=== PATIENT | female | born 1995 | race Caucasian/White ===

== ENCOUNTER 2021-10-03 20:10 | Emergency (ER) | payer BC, MEDICAID ==
[2021-10-03] MEDS: Ketorolac 30 MG/ML SDV IM ONE (21:37)
[2021-10-03] MEDS: Cefdinir 300 MG Cap PO ONE (21:42)
[2021-10-03 21:52] LABS: CORONAVIRUS COVID-19 NAA NEGATIVE (NEGATIVE)
== END 2021-10-03 22:28 | disposition home or self-care (01) ==
LOC: JD.ED 20:10
DX: N10 Acute pyelonephritis (principal); M25.512 Pain in left shoulder; Z20.822 Contact with and (suspected) exposure to COVID-19
CPT/HCPCS: 0240U; 73030; 81001; 87086; 87088; 87186; 96372; 99284; A9270; J1885

== ENCOUNTER 2024-07-14 23:01 | Emergency (ER) | payer MEDICAID | END 2024-07-15 00:52 | disposition home or self-care (01) | LOC: JD.ED 23:01 | DX: S00.31XA Abrasion of nose, initial encounter (principal); M79.632 Pain in left forearm; Y04.8XXA Assault by other bodily force, initial encounter | CPT/HCPCS: 73090-26-LT; 73090-LT; 99284 ==

== ENCOUNTER 2025-02-28 08:22 | Observation (INO) | payer MEDICAID ==
[2025-02-28 09:01] LABS: BASOPHILS ABSOLUTE AUTO 0.0 K/mm3 (0.0-0.2); BASOPHILS PERCENT AUTO 0.3 % (0.0-1.0); EOSINOPHILS ABSOLUTE AUTO 0.1 K/mm3 (0.0-0.4); EOSINOPHILS PERCENT AUTO 1.4 % (0.0-6.0); IMMATURE GRAN ABSOLUTE AUTO 0.03 K/mm3 (0.00-0.05); IMMATURE GRAN PERCENT AUTO 0.3 % (0.0-0.4); LYMPHOCYTES ABSOLUTE AUTO 3.5 K/mm3 (1.0-4.8); LYMPHOCYTES PERCENT AUTO 35.9 % (24.0-44.0); MEAN PLATELET VOLUME 9.0 fl (9.4-12.3); MONOCYTES ABSOLUTE AUTO 0.4 K/mm3 (0.0-0.8); MONOCYTES PERCENT AUTO 3.8 % (0.0-8.0); NEUTROPHILS ABSOLUTE AUTO 5.7 K/mm3 (1.8-7.7); NEUTROPHILS PERCENT AUTO 58.3 % (41.0-71.0); NRBC ABSOLUTE 0.00 (0.00-0.02); NRBC PERCENT 0.0 % (0.0-0.2); PLATELET COUNT,PLT 293 K/mm3 (150-400); RED BLOOD CELL COUNT 3.87 M/mm3 (4.10-5.30); WHITE BLOOD CELL COUNT,WBC 9.81 K/mm3 (3.9-11.3)
[2025-02-28] MEDS: Ondansetron 4 MG/2 ML SDV IVPUSH ONE (09:02)
[2025-02-28 09:11] LABS: A/G RATIO 0.7 (1-2); ALANINE AMINOTRANSFERASE,ALT 47.0 U/L (14-59); ASPARTATE AMNIOTRANSFERASE,AST 34.0 U/L (15-37); BILIRUBIN TOTAL 0.4 mg/dL (0.2-1.0); BLOOD UREA NITROGEN,BUN 8.0 mg/dL (7-18); CARBON DIOXIDE,CO2 27.0 mEq/L (21-32); CHLORIDE,CL 105.0 mEq/L (98-107); CREATINE KINASE,CK 138.0 U/L (26-192); CREATININE 0.6 mg/dL (0.55-1.02); EST CRCL DRUG DOSING (CG) 132.11 mL/min; ESTIMATED GFR 123.0 mL/min (>60); GLUCOSE RANDOM 102.0 mg/dL (70-99); POTASSIUM,K 3.9 mEq/L (3.5-5.1); PROTEIN TOTAL,TP 7.1 g/dl (6.4-8.2); SODIUM,NA 138.0 mEq/L (136-145)
[2025-02-28 09:15] LABS: ETHANOL BLOOD MEDICAL 0.0 gm% (0.00)
[2025-02-28] MEDS ORDERED: Ondansetron 4 MG Tab.DIS PO PRN (09:44)
[2025-02-28] MEDS ORDERED: Ketorolac 30 MG/ML SDV IVPUSH PRN (09:49)
[2025-02-28] MEDS ORDERED: Misoprostol 25 MCG (1/4 of 100 MCG) Tab VAG ONE (09:53)
[2025-02-28] MEDS: Lactated Ringers 1,000 ML IV SCH ×2 (10:28→17:00)
[2025-02-28] MEDS ORDERED: Midazolam 1 MG/ML 2 ML SDV ONE (10:45)
[2025-02-28] MEDS ORDERED: fentaNYL 250 MCG/5 ML SDV ONE (10:45)
[2025-02-28] MEDS ORDERED: propofoL 500 MG/50 ML 50 ML ONE (10:45)
[2025-02-28] MEDS ORDERED: Succinylcholine 200 MG/10 ML MDV ONE (10:52)
[2025-02-28] MEDS ORDERED: Lactated Ringers 1,000 ML ONE (10:52)
[2025-02-28] MEDS ORDERED: Phenylephrine 1% 10 MG/ML SDV ONE (11:12)
[2025-02-28] MEDS ORDERED: Esmolol 100 MG/10 ML SDV ONE (11:12)
[2025-02-28] MEDS ORDERED: Ketamine HCL/NACL, ISO-OSM 50 MG/5 ML Syringe ONE (11:13)
[2025-02-28 11:51] LABS: MEAN PLATELET VOLUME 9.2 fl (9.4-12.3); NRBC ABSOLUTE 0.00 (0.00-0.02); NRBC PERCENT 0.0 % (0.0-0.2); PLATELET COUNT,PLT 210 K/mm3 (150-400); RED BLOOD CELL COUNT 2.98 M/mm3 (4.10-5.30); WHITE BLOOD CELL COUNT,WBC 13.51 K/mm3 (3.9-11.3)
[2025-02-28 12:13] LABS: A/G RATIO 0.8 (1-2); ALANINE AMINOTRANSFERASE,ALT 36.0 U/L (14-59); ASPARTATE AMNIOTRANSFERASE,AST 27.0 U/L (15-37); BILIRUBIN TOTAL 0.4 mg/dL (0.2-1.0); BLOOD UREA NITROGEN,BUN 7.0 mg/dL (7-18); CARBON DIOXIDE,CO2 24.0 mEq/L (21-32); CHLORIDE,CL 107.0 mEq/L (98-107); CREATININE 0.5 mg/dL (0.55-1.02); EST CRCL DRUG DOSING (CG) 158.53 mL/min; ESTIMATED GFR 129.0 mL/min (>60); GLUCOSE RANDOM 111.0 mg/dL (70-99); POTASSIUM,K 3.8 mEq/L (3.5-5.1); PROTEIN TOTAL,TP 5.5 g/dl (6.4-8.2); SODIUM,NA 137.0 mEq/L (136-145)
[2025-02-28 12:42] LABS: INR 0.97
[2025-02-28 12:44] LABS: PTT,PARTIAL THROMBOPLSTIN TIME < 20.0 SECONDS (21.7-31.4)
[2025-02-28] MEDS ORDERED: Sodium Chloride 0.9% 10 ML Syringe FLUSH PRN ×2 (13:03→13:06)
[2025-02-28] MEDS ORDERED: Ondansetron 4 MG/2 ML SDV IVPUSH PRN (13:06)
[2025-02-28] MEDS ORDERED: fentaNYL 100 MCG/2 ML SDV IVPUSH PRN (13:06)
[2025-02-28 17:21] LABS: BASOPHILS ABSOLUTE AUTO 0.0 K/mm3 (0.0-0.2); BASOPHILS PERCENT AUTO 0.2 % (0.0-1.0); EOSINOPHILS ABSOLUTE AUTO 0.0 K/mm3 (0.0-0.4); EOSINOPHILS PERCENT AUTO 0.3 % (0.0-6.0); IMMATURE GRAN ABSOLUTE AUTO 0.04 K/mm3 (0.00-0.05); IMMATURE GRAN PERCENT AUTO 0.4 % (0.0-0.4); LYMPHOCYTES ABSOLUTE AUTO 2.6 K/mm3 (1.0-4.8); LYMPHOCYTES PERCENT AUTO 24.6 % (24.0-44.0); MEAN PLATELET VOLUME 9.1 fl (9.4-12.3); MONOCYTES ABSOLUTE AUTO 0.4 K/mm3 (0.0-0.8); MONOCYTES PERCENT AUTO 3.4 % (0.0-8.0); NEUTROPHILS ABSOLUTE AUTO 7.6 K/mm3 (1.8-7.7); NEUTROPHILS PERCENT AUTO 71.1 % (41.0-71.0); NRBC ABSOLUTE 0.00 (0.00-0.02); NRBC PERCENT 0.0 % (0.0-0.2); PLATELET COUNT,PLT 200 K/mm3 (150-400); RED BLOOD CELL COUNT 2.34 M/mm3 (4.10-5.30); WHITE BLOOD CELL COUNT,WBC 10.62 K/mm3 (3.9-11.3)
[2025-02-28 17:34] LABS: INR 1.03
[2025-02-28 17:35] LABS: PTT,PARTIAL THROMBOPLSTIN TIME 20.0 SECONDS (21.7-31.4)
[2025-02-28] MEDS ORDERED: Sodium Chloride 0.9% 10 ML Syringe FLUSH SCH (21:00)
== END 2025-02-28 19:40 | disposition home or self-care (01) ==
LOC: JD.OBCHECK 08:22 → JD.ED 08:22 → JD.OB 09:44 → EDSTATUS 09:51
PROVIDERS: ADMIT Obstetrics & Gynecology; ATTEND Obstetrics & Gynecology
DX: O03.4 Incomplete spontaneous abortion without complication (principal)
CPT/HCPCS: 36415; 59812; 76815; 80053; 80307; 82550; 82607; 83690; 83735; 84425; 85025; 85027; 85384; 85610; 85730; 86850; 86900; 86901; 96361; 96374; 99285; A9270; G0378; J0330; J0690; J1805; J2003; J2250; J2371; J2405; J2704; J3010; J7030; J7120; J7620; 01965; 99140; 99284; J3490